=== PATIENT | female | born 2000 | race Hispanic/Latino ===

== ENCOUNTER 2024-10-09 23:18 | Emergency (ER) | payer MEDICAID, SELFPAY ==
[2024-10-09] MEDS ORDERED: Haloperidol Lactate 5 MG/ML VIAL ONE (23:42)
== END 2024-10-10 01:55 | disposition home or self-care (01) ==
LOC: ERS 23:18
DX: R11.2 Nausea with vomiting, unspecified (principal); R10.9 Unspecified abdominal pain; F17.290 Nicotine dependence, other tobacco product, uncomplicated; Z55.6 Problems related to health literacy
CPT/HCPCS: 74177; 96374; J1630